=== PATIENT | female | born 1955 | race Caucasian/White ===

== ENCOUNTER 2017-01-28 09:25 | Inpatient (IN) | payer MEDICAID ==
[~2017-01-28] VITALS: Ht 170.2 cm; Wt 95.3 kg
[~2017-01-28 09:25] MED LIST: NEURONTIN; ROBAXIN; VICODIN
[2017-01-28] MEDS ORDERED: FURO40TA5 PO (09:38)
[2017-01-28] MEDS ORDERED: GABA-533 PO (09:38)
[2017-01-28] MEDS ORDERED: LORAZEPAM 1MG TABLET PO ONE (15:45)
[2017-01-28] MEDS ORDERED: SODIUM CHLORIDE 0.9% 1,000 ML IV ONE (18:45)
[2017-01-28] MEDS ORDERED: MORPHINE SULFATE 4 MG/ML CPJ (NOT FOR IM USE) IV ONE (18:45)
[2017-01-28] MEDS ORDERED: ONDANSETRON HCL 4MG/2ML VIAL IV ONE (18:45)
[2017-01-28 22:30] VITALS: BP 131/78
[2017-01-29] VITALS: BP_SYST 144; BP_DIAS 47; BP_DIAS 59
[2017-01-29] MEDS ORDERED: DEXTROSE 50% WATER 50ML SYRINGE IV PRN
[2017-01-29] MEDS ORDERED: CLONIDINE 0.1MG TABLET PO ONE
[2017-01-29] MEDS ORDERED: CLONIDINE 0.1MG TABLET PO PRN ×2 (00:15→18:15)
[2017-01-29] MEDS: MORPHINE SULFATE 4 MG/ML CPJ (NOT FOR IM USE) IV PRN ×3 (00:45→09:35)
[2017-01-29 04:00] VITALS: BP_SYST 131; BP_SYST 134; BP_DIAS 55; BP_DIAS 71
[2017-01-29 07:10] LABS: BASOPHILS % 0.6 % (0.0-2.0); EOSINOPHILS % 2.4 % (0.0-5.0); HEMATOCRIT. 32.2 % (36.0-48.0); HEMOGLOBIN. 10.9 g/dL (12.0-16.0); LYMPHOCYTES % 42.1 % (20.0-50.0); MEAN CORPUSCULAR HEMOGLOBIN 31.6 pg (28.0-32.0); MEAN CORPUSCULAR VOLUME 93.6 fL (81.0-99.0); MEAN PLATELET VOLUME 8.6 fl (7.4-10.4); MONOCYTES % 8.6 % (2.0-8.0); NEUTROPHILS % 46.3 % (40.0-76.0); PLATELET 195 x1000/uL (130-400); RED BLOOD CELL COUNT 3.44 mill/uL (4.2-5.4); RED CELL DISTRIBUTION WIDTH 14.1 % (11.6-14.6)
[2017-01-29] MEDS: INSULIN LISPRO 100 UNITS/ML SUBCUT SCH ×4 (07:50→20:54)
[2017-01-29 08:00] VITALS: BP 128/58
[2017-01-29] MEDS: BLOOD SUGAR DIAGNOSTIC STRIP TEST SCH ×4 (08:04→20:47)
[2017-01-29 08:22] LABS: CARBON DIOXIDE 31 mEq/L (21-32); CHLORIDE 106 mEq/L (98-107)
[2017-01-29] MEDS ORDERED: NICOTINE 14MG PATCH TD SCH (09:00)
[2017-01-29] MEDS: GABAPENTIN 400MG CAPSULE PO SCH (09:35)
[2017-01-29] MEDS ORDERED: INFLUENZA VIRUS VACCINE 0.5ML SYR IM ONE (10:00)
[2017-01-29] MEDS: CARISOPRODOL 350 MG TABLET PO PRN ×2 (13:10→22:22)
[2017-01-29] MEDS: HYDROCODONE/ACETAMINOPHEN 10/325MG TABLET PO PRN ×2 (13:11→18:52)
[2017-01-29 16:00] VITALS: BP 122/45
[2017-01-29] MEDS ORDERED: ONDANSETRON HCL 4MG/2ML VIAL IV PRN ×2 (18:15)
[2017-01-29] MEDS ORDERED: MAGNESIUM/ALUMINUM HYDROXIDE/SIMETHICONE 30ML UDC PO PRN (18:15)
[2017-01-29] MEDS ORDERED: ACETAMINOPHEN 650MG/20.3ML UDC GT PRN (18:15)
[2017-01-29] MEDS ORDERED: IPRATROPIUM/ALBUTEROL 0.5-3(2.5)MG/3ML NEB INH PRN (18:15)
[2017-01-29] MEDS ORDERED: ACETAMINOPHEN 650MG SUPP PR PRN (18:15)
[2017-01-29 20:00] VITALS: BP 119/45
[2017-01-29] MEDS ORDERED: POTASSIUM CHLORIDE 20MEQ TABLET SR PO NR (20:30)
[2017-01-29] MEDS: SODIUM CHLORIDE 0.9% INJ 3ML FLUSH IVF SCH (21:02)
[2017-01-29 23:39] LABS: CLARITY URINE CLEAR (CLEAR); COLOR URINE YELLOW (YELLOW); GLUCOSE URINE NEGATIVE (NEGATIVE); KETONES URINE NEGATIVE (NEGATIVE); LEUKOCYTE ESTERASE URINE NEGATIVE (NEGATIVE); NITRITE URINE NEGATIVE (NEGATIVE); OCCULT BLOOD URINE NEGATIVE (NEGATIVE); PH URINE 5.5 (4.5-8.0); PROTEIN URINE NEGATIVE (NEGATIVE); SPECIFIC GRAVITY URINE 1.017 (1.005-1.030); UROBILINOGEN URINE 0.2 E.U./dL (0.2-1.0)
[2017-01-30] VITALS: BP 116/52
[2017-01-30 00:02] LABS: *AMPHETAMINES SCREEN URINE NEGATIVE (NEGATIVE); *BARBITURATES SCREEN URINE NEGATIVE (NEGATIVE); *BENZODIAZEPINES SCREEN URINE NEGATIVE (NEGATIVE); *COCAINE SCREEN URINE NEGATIVE (NEGATIVE); CANNABINOID URINE SCREEN PRESUMTIVE POSITIVE (NEGATIVE); METHADONE URINE SCREEN NEGATIVE (NEGATIVE); OPIATES URINE SCREEN PRESUMTIVE POSITIVE (NEGATIVE); PHENCYCLIDINE URINE SCREEN NEGATIVE (NEGATIVE)
[2017-01-30 04:00] VITALS: BP 120/78
[2017-01-30] MEDS: HYDROCODONE/ACETAMINOPHEN 10/325MG TABLET PO PRN ×3 (04:05→18:29)
[2017-01-30] MEDS: CARISOPRODOL 350 MG TABLET PO PRN ×3 (06:19→22:07)
[2017-01-30] MEDS: SODIUM CHLORIDE 0.9% INJ 3ML FLUSH IVF SCH ×3 (06:19→20:47)
[2017-01-30] MEDS: BLOOD SUGAR DIAGNOSTIC STRIP TEST SCH ×4 (06:38→20:49)
[2017-01-30] MEDS: INSULIN LISPRO 100 UNITS/ML SUBCUT SCH ×4 (07:50→20:49)
[2017-01-30 08:00] VITALS: BP 113/43
[2017-01-30 08:01] LABS: BASOPHILS % 0.7 % (0.0-2.0); EOSINOPHILS % 2.3 % (0.0-5.0); HEMATOCRIT. 32.5 % (36.0-48.0); LYMPHOCYTES % 33.3 % (20.0-50.0); MEAN CORPUSCULAR HEMOGLOBIN 31.9 pg (28.0-32.0); MEAN CORPUSCULAR VOLUME 94.1 fL (81.0-99.0); MEAN PLATELET VOLUME 8.6 fl (7.4-10.4); MONOCYTES % 9.2 % (2.0-8.0); NEUTROPHILS % 54.5 % (40.0-76.0); PLATELET 193 x1000/uL (130-400); RED BLOOD CELL COUNT 3.46 mill/uL (4.2-5.4); RED CELL DISTRIBUTION WIDTH 14.4 % (11.6-14.6)
[2017-01-30 08:57] LABS: CARBON DIOXIDE 28 mEq/L (21-32); CHLORIDE 107 mEq/L (98-107); LDL CHOLESTEROL 130 mg/dL (5-100)
[2017-01-30] MEDS: GABAPENTIN 400MG CAPSULE PO SCH (08:58)
[2017-01-30 09:00] LABS: HDL CHOLESTEROL 49 mg/dL (40-59)
[2017-01-30 12:00] VITALS: BP 118/97
[2017-01-30 16:00] VITALS: BP 124/55
[2017-01-30] MEDS ORDERED: NICOTINE 14MG PATCH TD SCH (18:00)
[2017-01-30 20:00] VITALS: BP 105/42
[2017-01-30 20:47] LABS: PROTHROMBIN TIME 10.5 sec (9.4-11.6)
[2017-01-31] VITALS (36 sets, daily range): BP systolic 110–160; BP diastolic 42–78
[2017-01-31] MEDS: HYDROCODONE/ACETAMINOPHEN 10/325MG TABLET PO PRN ×2 (06:09→23:08)
[2017-01-31] MEDS: SODIUM CHLORIDE 0.9% INJ 3ML FLUSH IVF SCH ×3 (06:10→22:00)
[2017-01-31] MEDS: BLOOD SUGAR DIAGNOSTIC STRIP TEST SCH ×3 (06:13→18:00)
[2017-01-31] MEDS: INSULIN LISPRO 100 UNITS/ML SUBCUT SCH ×4 (06:55→21:00)
[2017-01-31] MEDS ORDERED: BACITRACIN 50,000 UNITS/VIAL ONE (07:00)
[2017-01-31] MEDS ORDERED: NORMAL SALINE 0.9% 10 ML SYR ONE (07:00)
[2017-01-31] MEDS ORDERED: THROMBIN (BOVINE) 5000 UNITS/VIAL TOP ONE (07:00)
[2017-01-31] MEDS ORDERED: GELATIN SPONGE,ABSORBABLE SZ 100 ONE (07:00)
[2017-01-31] MEDS ORDERED: LIDOCAINE HCL 1%/EPI 1:200,000 30 ML VIAL ONE (07:02)
[2017-01-31] MEDS ORDERED: ONDANSETRON HCL 4MG/2ML VIAL IV PRN (07:15)
[2017-01-31] MEDS ORDERED: ATROPINE SULFATE 0.4MG/ML VIAL IV PRN (07:15)
[2017-01-31] MEDS ORDERED: FENTANYL CITRATE/PF 50MCG/ML 2ML VIAL IV PRN (07:15)
[2017-01-31] MEDS ORDERED: MIDAZOLAM HCL 5 MG/5 ML VIAL ONE (07:18)
[2017-01-31] MEDS ORDERED: NICARDIPINE 50 MG in SODIUM CHLORIDE 0.9% 230 ML IV PRN (08:00)
[2017-01-31] MEDS ORDERED: PROPOFOL 10MG/ML 100ML 100 ML IV ONE (08:39)
[2017-01-31] MEDS ORDERED: MANNITOL 20% 0 ML IV ONE (08:59)
[2017-01-31] MEDS ORDERED: NICARDIPINE 100 MG in SODIUM CHLORIDE 0.9% 60 ML IV ONE (09:00)
[2017-01-31] MEDS ORDERED: FUROSEMIDE 40MG TABLET PO SCH (09:00)
[2017-01-31] MEDS ORDERED: LIDOCAINE HCL 1% 20ML VIAL (Pyxis) INJ ONE (09:05)
[2017-01-31] MEDS ORDERED: PROPOFOL 200MG/20ML VIAL IV ONE (09:05)
[2017-01-31] MEDS ORDERED: CEFAZOLIN SODIUM 1000MG/VIAL ONE (09:05)
[2017-01-31] MEDS ORDERED: ROCURONIUM BROMIDE 10MG/ML VIAL 5ML IV ONE (09:05)
[2017-01-31] MEDS ORDERED: LABETALOL HCL 5MG/ML VIAL 20ML IV ONE (09:06)
[2017-01-31] MEDS ORDERED: KETOROLAC 30MG/ML VIAL ONE (09:06)
[2017-01-31] MEDS ORDERED: ESMOLOL HCL 10MG/ML 10ML VIAL IV ONE (09:06)
[2017-01-31] MEDS ORDERED: FENTANYL CITRATE/PF 50MCG/ML 2ML VIAL ONE ×2 (10:10→11:28)
[2017-01-31] MEDS: HYDROMORPHONE HCL/PF 2MG/ML CPJ IV PRN ×2 (11:56→12:11)
[2017-01-31] MEDS ORDERED: NICARDIPINE 100 MG in SODIUM CHLORIDE 0.9% 60 ML IV PRN (12:00)
[2017-01-31] MEDS ORDERED: ONDANSETRON INJ IV PRN (12:00)
[2017-01-31] MEDS ORDERED: HYDROMORPHONE PCA 10MG/50ML IV PRN (12:00)
[2017-01-31] MEDS ORDERED: NALOXONE INJ IV PRN (12:00)
[2017-01-31] MEDS: DEXT 5%/LACTATED RINGERS 1,000 ML IV SCH ×2 (12:30→18:47)
[2017-01-31] MEDS ORDERED: CEFAZOLIN SODIUM 1000MG/VIAL IV SCH (14:00)
[2017-01-31] MEDS: CEFAZOLIN 1000MG PREMIX 50 ML IV SCH (16:00)
[2017-01-31] MEDS: POTASSIUM CHLORIDE 10MEQ TABLET SR PO SCH (18:00)
[2017-01-31] MEDS ORDERED: CLONIDINE 0.1MG TABLET PO PRN (18:15)
[2017-01-31] MEDS: NICOTINE 14MG PATCH TD SCH (20:00)
[2017-01-31] MEDS: MORPHINE SULFATE 4 MG/ML CPJ (NOT FOR IM USE) IV PRN (22:55)
[2017-02-01] VITALS (16 sets, daily range): BP systolic 94–185; BP diastolic 44–124
[2017-02-01] MEDS: CEFAZOLIN 1000MG PREMIX 50 ML IV SCH ×2 (00:32→08:37)
[2017-02-01] MEDS: CARISOPRODOL 350 MG TABLET PO PRN ×2 (00:34→11:44)
[2017-02-01] MEDS: DEXT 5%/LACTATED RINGERS 1,000 ML IV SCH (01:00)
[2017-02-01] MEDS ORDERED: MORPHINE SULFATE 2 MG/ML CPJ (NOT FOR IM USE) IV PRN (02:30)
[2017-02-01] MEDS: MORPHINE SULFATE 4 MG/ML CPJ (NOT FOR IM USE) IV PRN ×3 (02:36→07:21)
[2017-02-01] MEDS: SODIUM CHLORIDE 0.9% INJ 3ML FLUSH IVF SCH ×3 (06:00→21:27)
[2017-02-01 06:46] LABS: BASOPHILS % 0.2 % (0.0-2.0); EOSINOPHILS % 0.2 % (0.0-5.0); LYMPHOCYTES % 16.5 % (20.0-50.0); MEAN CORPUSCULAR HEMOGLOBIN 32.2 pg (28.0-32.0); MEAN PLATELET VOLUME 8.8 fl (7.4-10.4); NEUTROPHILS % 71.1 % (40.0-76.0); PLATELET 172 x1000/uL (130-400); RED BLOOD CELL COUNT 2.78 mill/uL (4.2-5.4); RED CELL DISTRIBUTION WIDTH 14.4 % (11.6-14.6)
[2017-02-01] MEDS: INSULIN LISPRO 100 UNITS/ML SUBCUT SCH ×4 (07:00→21:00)
[2017-02-01] MEDS: BLOOD SUGAR DIAGNOSTIC STRIP TEST SCH ×4 (07:02→21:27)
[2017-02-01 07:21] LABS: HEMATOCRIT. 26.9 % (36.0-48.0)
[2017-02-01] MEDS: FUROSEMIDE 40MG TABLET PO SCH (09:00)
[2017-02-01] MEDS: GABAPENTIN 400MG CAPSULE PO SCH (09:00)
[2017-02-01] MEDS: HYDROCODONE/ACETAMINOPHEN 10/325MG TABLET PO PRN ×2 (09:35→20:36)
[2017-02-01] MEDS ORDERED: MORPHINE SULFATE 4 MG/ML CPJ (NOT FOR IM USE) IV PRN (09:45)
[2017-02-01] MEDS: HYDROMORPHONE HCL/PF 2MG/ML CPJ IV PRN ×3 (12:53→23:58)
[2017-02-01] MEDS: FENOFIBRATE NANOCRYSTALLIZED 48MG TABLET PO SCH (13:07)
[2017-02-01] MEDS ORDERED: LORAZEPAM 0.5MG TABLET PO ONE (14:30)
[2017-02-01] MEDS ORDERED: LORAZEPAM 2MG/ML CPJ IV SCH ×3 (14:30→14:45)
[2017-02-01] MEDS: NICOTINE 14MG PATCH TD SCH (20:07)
[2017-02-01] MEDS: LORAZEPAM 2MG/ML CPJ IV PRN (20:35)
[2017-02-01] MEDS: ATORVASTATIN CALCIUM 40MG TABLET PO SCH (20:36)
[2017-02-01] MEDS: ACETAMINOPHEN 325MG TABLET PO PRN (21:17)
[2017-02-01] MEDS: DIPHENHYDRAMINE INJ IV PRN (23:58)
[2017-02-02] VITALS (28 sets, daily range): BP systolic 81–148; BP diastolic 35–107
[2017-02-02] MEDS: LORAZEPAM 2MG/ML CPJ IV PRN ×3 (02:27→08:06)
[2017-02-02] MEDS: HYDROCODONE/ACETAMINOPHEN 10/325MG TABLET PO PRN ×4 (02:27→22:16)
[2017-02-02] MEDS: CARISOPRODOL 350 MG TABLET PO PRN ×2 (02:58→18:51)
[2017-02-02] MEDS: DIPHENHYDRAMINE INJ IV PRN (03:54)
[2017-02-02] MEDS: HYDROMORPHONE HCL/PF 2MG/ML CPJ IV PRN ×5 (03:56→23:06)
[2017-02-02] MEDS: BLOOD SUGAR DIAGNOSTIC STRIP TEST SCH ×4 (07:00→21:41)
[2017-02-02] MEDS: INSULIN LISPRO 100 UNITS/ML SUBCUT SCH ×4 (07:00→21:00)
[2017-02-02] MEDS: SODIUM CHLORIDE 0.9% INJ 3ML FLUSH IVF SCH ×3 (08:00→21:41)
[2017-02-02 09:13] LABS: HEMATOCRIT 26.2 % (36.0-48.0); HEMOGLOBIN 9.1 g/dL (12.0-16.0); MEAN CORPUSCULAR HEMOGLOBIN 31.7 pg (28.0-32.0); MEAN CORPUSCULAR VOLUME 91.7 fL (81.0-99.0); PLATELET 177 x1000/uL (130-400); RED BLOOD CELL COUNT 2.86 mill/uL (4.2-5.4)
[2017-02-02] MEDS: GABAPENTIN 400MG CAPSULE PO SCH (09:38)
[2017-02-02] MEDS: FUROSEMIDE 40MG TABLET PO SCH (09:39)
[2017-02-02] MEDS: FENOFIBRATE NANOCRYSTALLIZED 48MG TABLET PO SCH (09:39)
[2017-02-02] MEDS: POTASSIUM CHLORIDE 10MEQ TABLET SR PO SCH (09:39)
[2017-02-02] MEDS: NICOTINE 14MG PATCH TD SCH (17:12)
[2017-02-02] MEDS: ATORVASTATIN CALCIUM 40MG TABLET PO SCH (21:42)
[2017-02-02] MEDS: ACETAMINOPHEN 325MG TABLET PO PRN (23:10)
[2017-02-03] VITALS (23 sets, daily range): BP systolic 90–141; BP diastolic 42–99
[2017-02-03] MEDS: LORAZEPAM 2MG/ML CPJ IV PRN (01:22)
[2017-02-03] MEDS: HYDROMORPHONE HCL/PF 2MG/ML CPJ IV PRN ×7 (03:43→21:54)
[2017-02-03] MEDS: SODIUM CHLORIDE 0.9% INJ 3ML FLUSH IVF SCH ×3 (06:47→20:25)
[2017-02-03] MEDS: INSULIN LISPRO 100 UNITS/ML SUBCUT SCH ×4 (06:47→20:22)
[2017-02-03] MEDS: BLOOD SUGAR DIAGNOSTIC STRIP TEST SCH ×4 (06:47→20:23)
[2017-02-03] MEDS ORDERED: DEXTROSE 5% WATER 1,000 ML IV SCH (08:00)
[2017-02-03] MEDS: OXYCODONE HCL/ACETAMINOPHEN 5/325MG TABLET PO PRN ×2 (08:53→20:22)
[2017-02-03] MEDS: FUROSEMIDE 40MG TABLET PO SCH (09:06)
[2017-02-03] MEDS: FENOFIBRATE NANOCRYSTALLIZED 48MG TABLET PO SCH (09:06)
[2017-02-03] MEDS: GABAPENTIN 400MG CAPSULE PO SCH (09:06)
[2017-02-03] MEDS: POTASSIUM CHLORIDE 10MEQ TABLET SR PO SCH (09:06)
[2017-02-03 10:17] LABS: HEMATOCRIT 27.8 % (36.0-48.0); HEMOGLOBIN 9.5 g/dL (12.0-16.0); MEAN CORPUSCULAR HEMOGLOBIN 31.4 pg (28.0-32.0); MEAN CORPUSCULAR VOLUME 91.7 fL (81.0-99.0); PLATELET 199 x1000/uL (130-400); RED BLOOD CELL COUNT 3.03 mill/uL (4.2-5.4); RED CELL DISTRIBUTION WIDTH 13.6 % (11.6-14.6)
[2017-02-03 10:33] LABS: CARBON DIOXIDE 37 mEq/L (21-32); CHLORIDE 92 mEq/L (98-107)
[2017-02-03] MEDS: DEXT 5%/LACTATED RINGERS 1,000 ML IV SCH ×2 (11:11→21:00)
[2017-02-03] MEDS ORDERED: POTASSIUM CHLORIDE INJ 40 MEQ in DEXT 5% WATER 250 ML IV NR (12:00)
[2017-02-03] MEDS: NICOTINE 14MG PATCH TD SCH (18:53)
[2017-02-03] MEDS: ACETAMINOPHEN 325MG TABLET PO PRN (20:24)
[2017-02-03] MEDS: ATORVASTATIN CALCIUM 40MG TABLET PO SCH (20:24)
[2017-02-03] MEDS: CARISOPRODOL 350 MG TABLET PO PRN (23:07)
[2017-02-04] VITALS (8 sets, daily range): BP systolic 107–134; BP diastolic 47–74
[2017-02-04] MEDS ORDERED: POTASSIUM CHLORIDE 20MEQ TABLET SR PO SCH (00:30)
[2017-02-04] MEDS: HYDROMORPHONE HCL/PF 2MG/ML CPJ IV PRN ×5 (01:04→20:18)
[2017-02-04] MEDS: DEXT 5%/LACTATED RINGERS 1,000 ML IV SCH ×2 (01:15→07:00)
[2017-02-04] MEDS: OXYCODONE HCL/ACETAMINOPHEN 5/325MG TABLET PO PRN ×2 (05:05→12:11)
[2017-02-04 06:10] LABS: CARBON DIOXIDE 38 mEq/L (21-32); CHLORIDE 92 mEq/L (98-107)
[2017-02-04] MEDS: BLOOD SUGAR DIAGNOSTIC STRIP TEST SCH ×4 (06:30→20:33)
[2017-02-04] MEDS: INSULIN LISPRO 100 UNITS/ML SUBCUT SCH ×4 (07:00→20:33)
[2017-02-04] MEDS: SODIUM CHLORIDE 0.9% INJ 3ML FLUSH IVF SCH ×3 (07:37→22:48)
[2017-02-04] MEDS: FUROSEMIDE 40MG TABLET PO SCH (08:27)
[2017-02-04] MEDS: POTASSIUM CHLORIDE 10MEQ TABLET SR PO SCH (08:27)
[2017-02-04] MEDS: GABAPENTIN 400MG CAPSULE PO SCH (08:27)
[2017-02-04] MEDS: FENOFIBRATE NANOCRYSTALLIZED 48MG TABLET PO SCH (08:27)
[2017-02-04] MEDS: CARISOPRODOL 350 MG TABLET PO PRN (09:16)
[2017-02-04 10:01] LABS: T4 FREE 1.57 ng/dL (0.76-1.46)
[2017-02-04] MEDS ORDERED: POTASSIUM CHLORIDE 20MEQ TABLET SR PO NR (10:45)
[2017-02-04] MEDS ORDERED: HYDROMORPHONE HCL/PF 2MG/ML CPJ IV PRN (12:15)
[2017-02-04] MEDS ORDERED: HYDROMORPHONE HCL/PF 2MG/ML CPJ IV NR (16:00)
[2017-02-04 16:13] LABS: CREATINE KINASE MB FRACTION 1.8 ng/mL (0.5-3.6); TROPONIN I < 0.02 ng/mL (0.00-0.04)
[2017-02-04 16:17] LABS: CREATINE KINASE 1136 IU/L (26-192)
[2017-02-04] MEDS: ACETAMINOPHEN 325MG TABLET PO PRN (18:10)
[2017-02-04] MEDS: CYCLOBENZAPRINE 10MG TABLET PO PRN (18:10)
[2017-02-04] MEDS: ATORVASTATIN CALCIUM 40MG TABLET PO SCH (20:18)
[2017-02-04] MEDS: NICOTINE 14MG PATCH TD SCH (20:18)
[2017-02-04 23:35] LABS: TROPONIN I < 0.02 ng/mL (0.00-0.04)
[2017-02-05] VITALS: BP 128/58
[2017-02-05] MEDS: HYDROMORPHONE HCL/PF 2MG/ML CPJ IV PRN ×4 (00:43→17:11)
[2017-02-05 01:00] LABS: CREATINE KINASE 1046 IU/L (26-192)
[2017-02-05] MEDS: DEXT 5%/LACTATED RINGERS 1,000 ML IV SCH ×2 (01:18→14:30)
[2017-02-05] MEDS: CYCLOBENZAPRINE 10MG TABLET PO PRN ×3 (02:45→22:57)
[2017-02-05] MEDS: LORAZEPAM 2MG/ML CPJ IV PRN ×2 (02:49→14:25)
[2017-02-05 04:00] VITALS: BP 125/37
[2017-02-05] MEDS: SODIUM CHLORIDE 0.9% INJ 3ML FLUSH IVF SCH ×3 (05:25→20:18)
[2017-02-05] MEDS: BLOOD SUGAR DIAGNOSTIC STRIP TEST SCH ×4 (06:05→20:16)
[2017-02-05] MEDS: INSULIN LISPRO 100 UNITS/ML SUBCUT SCH ×4 (06:33→20:16)
[2017-02-05 08:00] VITALS: BP 125/39
[2017-02-05] MEDS: FUROSEMIDE 40MG TABLET PO SCH (08:03)
[2017-02-05] MEDS: FENOFIBRATE NANOCRYSTALLIZED 48MG TABLET PO SCH (08:03)
[2017-02-05] MEDS: POTASSIUM CHLORIDE 10MEQ TABLET SR PO SCH (08:03)
[2017-02-05] MEDS: GABAPENTIN 400MG CAPSULE PO SCH (08:03)
[2017-02-05] MEDS: OXYCODONE HCL/ACETAMINOPHEN 5/325MG TABLET PO PRN ×2 (08:04→20:13)
[2017-02-05] MEDS: ACETAMINOPHEN 325MG TABLET PO PRN (08:55)
[2017-02-05 09:17] LABS: CREATINE KINASE 870 IU/L (26-192); CREATINE KINASE MB FRACTION 1.7 ng/mL (0.5-3.6); TROPONIN I < 0.02 ng/mL (0.00-0.04)
[2017-02-05 12:00] VITALS: BP 130/75
[2017-02-05 15:56] VITALS: BP 133/68
[2017-02-05] MEDS: NICOTINE 14MG PATCH TD SCH (17:11)
[2017-02-05 20:00] VITALS: BP 120/51
[2017-02-05] MEDS: ATORVASTATIN CALCIUM 40MG TABLET PO SCH (20:13)
[2017-02-06] VITALS: BP 127/50
[2017-02-06] MEDS: HYDROMORPHONE HCL/PF 2MG/ML CPJ IV PRN ×3 (01:15→18:07)
[2017-02-06 04:00] VITALS: BP 126/51
[2017-02-06] MEDS: OXYCODONE HCL/ACETAMINOPHEN 5/325MG TABLET PO PRN (04:18)
[2017-02-06] MEDS: INSULIN LISPRO 100 UNITS/ML SUBCUT SCH ×4 (06:34→21:00)
[2017-02-06] MEDS: SODIUM CHLORIDE 0.9% INJ 3ML FLUSH IVF SCH ×3 (06:34→20:55)
[2017-02-06] MEDS: BLOOD SUGAR DIAGNOSTIC STRIP TEST SCH ×4 (06:34→21:00)
[2017-02-06 08:00] VITALS: BP 148/62
[2017-02-06] MEDS: POTASSIUM CHLORIDE 10MEQ TABLET SR PO SCH (08:24)
[2017-02-06] MEDS: FUROSEMIDE 40MG TABLET PO SCH (08:25)
[2017-02-06] MEDS: FENOFIBRATE NANOCRYSTALLIZED 48MG TABLET PO SCH (08:25)
[2017-02-06] MEDS: GABAPENTIN 400MG CAPSULE PO SCH (08:25)
[2017-02-06] MEDS: NICOTINE 14MG PATCH TD SCH (18:00)
[2017-02-06 20:00] VITALS: BP 126/63
[2017-02-06] MEDS: ATORVASTATIN CALCIUM 40MG TABLET PO SCH (20:54)
[2017-02-06] MEDS ORDERED: TAMSULOSIN HCL 0.4MG SR CAPSULE PO SCH (21:00)
[2017-02-06] MEDS ORDERED: OXYC-523 PO (22:33)
[2017-02-06] MEDS ORDERED: GABA-533 PO (22:33)
[2017-02-06] MEDS ORDERED: LIP40 PO (22:33)
[2017-02-06] MEDS ORDERED: FURO40TA5 PO (22:33)
[2017-02-06] MEDS ORDERED: TAMS-11 PO (22:33)
[2017-02-07] VITALS (7 sets, daily range): BP systolic 106–138; BP diastolic 47–68
[2017-02-07] MEDS: HYDROMORPHONE HCL/PF 2MG/ML CPJ IV PRN ×2 (04:06→12:40)
[2017-02-07] MEDS: SODIUM CHLORIDE 0.9% INJ 3ML FLUSH IVF SCH ×2 (06:31→15:26)
[2017-02-07] MEDS: BLOOD SUGAR DIAGNOSTIC STRIP TEST SCH ×3 (06:33→17:14)
[2017-02-07] MEDS: INSULIN LISPRO 100 UNITS/ML SUBCUT SCH ×3 (06:44→17:15)
[2017-02-07] MEDS: FUROSEMIDE 40MG TABLET PO SCH (10:08)
[2017-02-07] MEDS: FENOFIBRATE NANOCRYSTALLIZED 48MG TABLET PO SCH (10:08)
[2017-02-07] MEDS: GABAPENTIN 400MG CAPSULE PO SCH (10:09)
[2017-02-07] MEDS: POTASSIUM CHLORIDE 10MEQ TABLET SR PO SCH (10:09)
[2017-02-07] MEDS: NICOTINE 14MG PATCH TD SCH (19:17)
== END 2017-02-07 20:48 | DRG 304 ==
LOC: ER 10:07 → 6EST 18:28 → ENRESERV 19:17 → MICUNO 01-31 11:37 → 8WST 02-04 16:29
PROVIDERS: ADMIT Family Medicine; ATTEND Family Medicine
PROC: 0SG3071 Fusion of Lumbosacral Joint with Autologous Tissue Substitute, Posterior Approach, Posterior Column, Open Approach (ICD-10-PCS; 2017-01-31)
PROC: 0SG0071 Fusion of Lumbar Vertebral Joint with Autologous Tissue Substitute, Posterior Approach, Posterior Column, Open Approach (ICD-10-PCS; principal; 2017-01-31 07:30)
DX: M43.16 Spondylolisthesis, lumbar region (principal); G95.89 Other specified diseases of spinal cord; M48.02 Spinal stenosis, cervical region; I11.0 Hypertensive heart disease with heart failure; I50.9 Heart failure, unspecified; M47.16 Other spondylosis with myelopathy, lumbar region; D64.9 Anemia, unspecified; E11.9 Type 2 diabetes mellitus without complications; E78.1 Pure hyperglyceridemia; E78.5 Hyperlipidemia, unspecified; E66.9 Obesity, unspecified; M48.061 Spinal stenosis, lumbar region without neurogenic claudication; R26.81 Unsteadiness on feet; R01.1 Cardiac murmur, unspecified; R33.9 Retention of urine, unspecified; I50.30 Unspecified diastolic (congestive) heart failure; Z60.2 Problems related to living alone; M47.26 Other spondylosis with radiculopathy, lumbar region; M71.38 Other bursal cyst, other site; F17.200 Nicotine dependence, unspecified, uncomplicated; M48.07 Spinal stenosis, lumbosacral region; G89.29 Other chronic pain; M54.2 Cervicalgia; Z90.710 Acquired absence of both cervix and uterus; Z98.891 History of uterine scar from previous surgery; Z91.81 History of falling; Z79.899 Other long term (current) drug therapy; Z91.14 Patient's other noncompliance with medication regimen; Z82.49 Family history of ischemic heart disease and other diseases of the circulatory system; Z68.32 Body mass index [BMI] 32.0-32.9, adult
CPT/HCPCS: 36415; 71010; 72100; 72141; 72148; 80048; 80053; 80061; 80305; 81003; 82550; 82553; 82962; 83036; 83735; 83880; 84132; 84439; 84443; 84484; 85025; 85027; 85379; 85610; 86803; 86850; 86900; 88304; 88311; 90686; 93005; 93306; 93970; 95863; 95925; 95926; 95928; 95929; 96361; 96374; 96375; 96376; 97162; 97166; 97530; 97535; 99285; A4216; C1713; J0690; J1170; J1200; J1815; J1885; J2060; J2250; J2270; J2405; J2704; J3010; J3480; J3490; J7030; J7050; J7060; J7070; J7121; A4315

== ENCOUNTER → 2019-02-13 | Day surgery (SDC) | payer MEDICAID ==
[~2019-02-13] VITALS: Ht 170.2 cm; Wt 93.0 kg
[~2019-02-13] MED LIST changes: +ACETYLCHOLINE CHLORIDE INTRAOCULAR SOLUTION 1:100 ELECTROLYTE DILUENT IO ONE; +BALANCED SALT IRRIG SOLN 15ML ONE; +BALANCED SALT IRRIG SOLN COMB1 500ML OP SCH; +BUPIVACAINE HCL/PF 0.75% (7.5MG/ML) 10ML ONE; +CEFAZOLIN SODIUM 1000MG/VIAL ONE; +CIPROFLOXACIN; +CIPROFLOXACIN 0.3% OPHTH SOLN 2.5ML ONE; +CYCLOPENTOLATE HCL 1% OPHTH DROPS 2ML LEFTEYE NR; +DEXAMETHASONE 4MG/ML 1ML VIAL ONE; +EPHEDRINE SULFATE 50MG/ML VIAL ONE; +FENTANYL CITRATE/PF 50MCG/ML 2ML VIAL ONE; +FURO40TA5 PO; +GABA-533 PO; +GLYCOPYRROLATE 0.2 MG/ML 2ML VIAL ONE; +HYALURONATE SODIUM 14 MG/ML 0.85ML SYRINGE IO ONE; +HYDROMORPHONE HCL/PF 2MG/ML CPJ IV PRN; +IBUP-2029 MT; +LABETALOL 5MG/ML SYR 20 MG/4 ML SYRINGE IV PRN; +LABETALOL HCL 5MG/ML VIAL 20ML IV ONE; +LACTATED RINGERS 1,000 ML IV SCH; +LIDOCAINE HCL/PF 1% 10 MG/ML 5ML VIAL ONE; +LIDOCAINE HCL/PF 2% 20 MG/ML 10ML VIAL ONE; +MEPERIDINE HCL/PF 25MG/ML CPJ IV PRN; +METH50TA5 MT; +METOCLOPRAMIDE HCL 10MG/2ML VIAL ONE; +MIDAZOLAM HCL 2 MG/2 ML VIAL ONE; +NEO/POLYMYX B SULF/DEXAMETH OPHTH OINT 3.5GM ONE; +NEOSTIGMINE METHYLSULFATE 1MG/ML 10 ML VIAL ONE; -NEURONTIN; +OFLO5DRO3 LEFTEYE; +ONDANSETRON HCL 4MG/2ML INJ IV PRN; +ONDANSETRON HCL 4MG/2ML INJ ONE; +PHENYLEPHRINE HCL 10 MG/ML 1ML (IV VIAL) IV ONE; +PHENYLEPHRINE HCL 10% OPHTH DROPS 5ML LEFTEYE NR; +PRED12O LEFTEYE; +PREDNISOLONE ACETATE 1% OPHTH DROPS 5ML ONE; +PREDNISONE; +PROPOFOL 200MG/20ML VIAL IV ONE; -ROBAXIN; +SODIUM CHLORIDE 0.9% 10ML VIAL ONE; +SUCCINYLCHOLINE CHLORIDE 200MG/10ML IV ONE; +TETRACAINE 0.5% OPHTH DROPS 4ML ONE; +TROPICAMIDE 1% OPHTH DROPS 15ML LEFTEYE NR; -VICODIN; +[UNRECOGNIZED DRUG - OTHER]
== END | disposition home or self-care (01) ==
LOC: OR 07:31
PROVIDERS: ATTEND Ophthalmology
DX: H25.89 Other age-related cataract (principal); E66.9 Obesity, unspecified; E78.00 Pure hypercholesterolemia, unspecified; I48.91 Unspecified atrial fibrillation; F17.210 Nicotine dependence, cigarettes, uncomplicated; Z98.890 Other specified postprocedural states; Z98.891 History of uterine scar from previous surgery; Z79.899 Other long term (current) drug therapy; Z72.89 Other problems related to lifestyle; Z83.3 Family history of diabetes mellitus; Z82.49 Family history of ischemic heart disease and other diseases of the circulatory system
CPT/HCPCS: 66984; 67005; J1100; J2250; J2405; J2704; J3010; J3490; V2632

== ENCOUNTER 2019-02-14 12:25 | Day surgery (SDC) | payer MEDICAID ==
[~2019-02-14] VITALS: Ht 170.2 cm; Wt 95.0 kg
[~2019-02-14 12:25] MED LIST changes: -ACETYLCHOLINE CHLORIDE INTRAOCULAR SOLUTION 1:100 ELECTROLYTE DILUENT IO ONE; -BALANCED SALT IRRIG SOLN 15ML ONE; -BALANCED SALT IRRIG SOLN COMB1 500ML OP SCH; -BUPIVACAINE HCL/PF 0.75% (7.5MG/ML) 10ML ONE; -CEFAZOLIN SODIUM 1000MG/VIAL ONE; -CIPROFLOXACIN; -CIPROFLOXACIN 0.3% OPHTH SOLN 2.5ML ONE; -CYCLOPENTOLATE HCL 1% OPHTH DROPS 2ML LEFTEYE NR; -DEXAMETHASONE 4MG/ML 1ML VIAL ONE; -EPHEDRINE SULFATE 50MG/ML VIAL ONE; -FENTANYL CITRATE/PF 50MCG/ML 2ML VIAL ONE; -GLYCOPYRROLATE 0.2 MG/ML 2ML VIAL ONE; -HYALURONATE SODIUM 14 MG/ML 0.85ML SYRINGE IO ONE; -HYDROMORPHONE HCL/PF 2MG/ML CPJ IV PRN; -IBUP-2029 MT; -LABETALOL 5MG/ML SYR 20 MG/4 ML SYRINGE IV PRN; -LABETALOL HCL 5MG/ML VIAL 20ML IV ONE; -LACTATED RINGERS 1,000 ML IV SCH; -LIDOCAINE HCL/PF 1% 10 MG/ML 5ML VIAL ONE; -LIDOCAINE HCL/PF 2% 20 MG/ML 10ML VIAL ONE; -MEPERIDINE HCL/PF 25MG/ML CPJ IV PRN; -METH50TA5 MT; -METOCLOPRAMIDE HCL 10MG/2ML VIAL ONE; -MIDAZOLAM HCL 2 MG/2 ML VIAL ONE; -NEO/POLYMYX B SULF/DEXAMETH OPHTH OINT 3.5GM ONE; -NEOSTIGMINE METHYLSULFATE 1MG/ML 10 ML VIAL ONE; -OFLO5DRO3 LEFTEYE; -ONDANSETRON HCL 4MG/2ML INJ IV PRN; -ONDANSETRON HCL 4MG/2ML INJ ONE; -PHENYLEPHRINE HCL 10 MG/ML 1ML (IV VIAL) IV ONE; -PHENYLEPHRINE HCL 10% OPHTH DROPS 5ML LEFTEYE NR; -PRED12O LEFTEYE; -PREDNISOLONE ACETATE 1% OPHTH DROPS 5ML ONE; -PREDNISONE; -PROPOFOL 200MG/20ML VIAL IV ONE; -SODIUM CHLORIDE 0.9% 10ML VIAL ONE; -SUCCINYLCHOLINE CHLORIDE 200MG/10ML IV ONE; -TETRACAINE 0.5% OPHTH DROPS 4ML ONE; -TROPICAMIDE 1% OPHTH DROPS 15ML LEFTEYE NR; -[UNRECOGNIZED DRUG - OTHER]
[2019-02-14] MEDS ORDERED: MORPHINE SULFATE 4 MG/ML CPJ (NOT FOR IM USE) IV STA (12:43)
[2019-02-14] MEDS ORDERED: ACETAZOLAMIDE SODIUM 500MG/VIAL IV ONE (13:00)
[2019-02-14] MEDS ORDERED: TETRACAINE 0.5% OPHTH DROPS 4ML ONE (13:00)
[2019-02-14] MEDS ORDERED: BALANCED SALT IRRIG SOLN 15ML ONE (13:00)
[2019-02-14] MEDS ORDERED: PREDNISOLONE ACETATE 1% OPHTH DROPS 5ML ONE (13:00)
[2019-02-14] MEDS ORDERED: ACETYLCHOLINE CHLORIDE INTRAOCULAR SOLUTION 1:100 ELECTROLYTE DILUENT IO ONE (13:00)
[2019-02-14] MEDS ORDERED: LIDOCAINE HCL/PF 2% 20 MG/ML 10ML VIAL ONE (13:00)
[2019-02-14] MEDS ORDERED: LIDOCAINE HCL 2%/EPINEPHRINE 1:100,000 20 ML VIAL INFIL ONE (13:00)
[2019-02-14] MEDS ORDERED: BUPIVACAINE HCL/PF 0.75% (7.5MG/ML) 10ML ONE (13:00)
[2019-02-14] MEDS ORDERED: BALANCED SALT IRRIG SOLN COMB1 500ML OP SCH (13:00)
[2019-02-14] MEDS ORDERED: CIPROFLOXACIN 0.3% OPHTH SOLN 2.5ML ONE (13:00)
[2019-02-14] MEDS ORDERED: HYALURONATE SODIUM 14 MG/ML 0.85ML SYRINGE IO ONE (14:11)
[2019-02-14] MEDS ORDERED: SUCCINYLCHOLINE CHLORIDE 200MG/10ML IV ONE (14:29)
[2019-02-14] MEDS ORDERED: PROPOFOL 200MG/20ML VIAL IV ONE (14:32)
[2019-02-14] MEDS ORDERED: ROCURONIUM BROMIDE 10MG/ML VIAL 5ML IV ONE (14:33)
[2019-02-14] MEDS ORDERED: SODIUM CHLORIDE 0.9% 1,000 ML IV ONE (15:33)
[2019-02-14] MEDS ORDERED: HYDROMORPHONE HCL/PF 2MG/ML CPJ IV PRN (15:45)
[2019-02-14] MEDS ORDERED: MORPHINE SULFATE 2 MG/ML CPJ (NOT FOR IM USE) IV PRN (15:45)
[2019-02-14] MEDS ORDERED: MEPERIDINE HCL/PF 25MG/ML CPJ IV PRN (15:45)
[2019-02-14] MEDS ORDERED: ONDANSETRON HCL 4MG/2ML INJ IV PRN (15:45)
[2019-02-14 16:18] VITALS: BP 138/66
[2019-02-17] MEDS ORDERED: PREDNISONE (05:17)
[2019-02-17] MEDS ORDERED: IBUP-2029 MT (05:17)
[2019-02-17] MEDS ORDERED: PRED12O LEFTEYE (05:17)
[2019-02-17] MEDS ORDERED: METH50TA5 MT (05:17)
[2019-02-17] MEDS ORDERED: OFLO5DRO3 LEFTEYE (05:17)
[2019-02-17] MEDS ORDERED: CIPROFLOXACIN (05:17)
[2019-02-17] MEDS ORDERED: [UNRECOGNIZED DRUG - OTHER] (05:17)
== END 2019-02-14 19:00 | disposition home or self-care (01) ==
LOC: ER 12:25 → UNDOADMIN 17:09 → ORIP 17:09 → OR 17:10
PROVIDERS: ATTEND Ophthalmology
DX: H27.132 Posterior dislocation of lens, left eye (principal); H57.12 Ocular pain, left eye; F17.210 Nicotine dependence, cigarettes, uncomplicated; Z79.899 Other long term (current) drug therapy; Z72.89 Other problems related to lifestyle; Z83.3 Family history of diabetes mellitus; Z82.49 Family history of ischemic heart disease and other diseases of the circulatory system; Z90.710 Acquired absence of both cervix and uterus; Z98.890 Other specified postprocedural states
CPT/HCPCS: 66986; 67005; 96374; 96376; 99285; J0330; J0690; J1100; J1120; J2250; J2270; J2370; J2405; J2704; J2710; J2765; J3010; J3490; V2630

== ENCOUNTER 2022-08-30 09:06 | Emergency (ER) | payer MEDICAID, OTHER ==
[~2022-08-30] VITALS: Ht 170.2 cm; Wt 87.0 kg
[~2022-08-30 09:06] MED LIST changes: +CIPROFLOXACIN; +IBUP-2029 MT; +METH50TA5 MT; +OFLO5DRO3 LEFTEYE; +PRED12O LEFTEYE; +PREDNISONE; +[UNRECOGNIZED DRUG - OTHER]
[2022-08-30 09:10] VITALS: BP 129/83
[2022-08-30 10:46] LABS: BASOPHILS % 0.7 % (0.0-2.0); EOSINOPHILS % 1.6 % (0.0-5.0); HEMATOCRIT. 41.8 % (36.0-48.0); HEMOGLOBIN. 14.1 g/dL (12.0-16.0); LYMPHOCYTES % 32.9 % (20.0-50.0); MEAN CORPUSCULAR HEMOGLOBIN 32.6 pg (28.0-32.0); MEAN CORPUSCULAR VOLUME 96.6 fL (81.0-99.0); MEAN PLATELET VOLUME 8.4 fl (7.4-10.4); MONOCYTES % 8.8 % (2.0-8.0); PLATELET 160 x1000/uL (130-400); RED BLOOD CELL COUNT 4.33 mill/uL (4.2-5.4); RED CELL DISTRIBUTION WIDTH 15.6 % (11.6-14.6)
[2022-08-30 10:57] LABS: CHLORIDE 111 mEq/L (98-107)
[2022-08-30 11:05] LABS: CREATINE KINASE 156 IU/L (26-192)
[2022-08-30] MEDS ORDERED: SODIUM CHLORIDE 0.9% 1,000 ML IV ONE (12:45)
[2022-08-30] MEDS ORDERED: POTASSIUM CHLORIDE 20MEQ TABLET SR PO NR (14:00)
== END 2022-08-30 17:23 | disposition home or self-care (01) ==
LOC: ER 09:41
DX: R42 Dizziness and giddiness (principal); R53.1 Weakness; E87.6 Hypokalemia; E11.9 Type 2 diabetes mellitus without complications; I10 Essential (primary) hypertension; F12.10 Cannabis abuse, uncomplicated; Z90.710 Acquired absence of both cervix and uterus
CPT/HCPCS: 36415; 70450; 80053; 82550; 85025; 93005; 99285; Z7610

== ENCOUNTER 2023-06-20 10:06 | Emergency (ER) | payer MEDICARE, MEDICAID ==
[~2023-06-20] VITALS: Ht 167.6 cm; Wt 50.0 kg
[~2023-06-20 10:06] MED LIST changes: -GABA-533 PO; +GABA-534 PO; +OCUFLX LEFTEYE; -OFLO5DRO3 LEFTEYE
[2023-06-20 10:10] VITALS: O2SAT 98
[2023-06-20] MEDS: OLANZAPINE 10 MG/VIAL IM ONE ×2 (11:28→14:30)
[2023-06-20 12:03] LABS: BASOPHILS % 0.9 % (0.0-2.0); EOSINOPHILS % 0.7 % (0.0-5.0); HEMATOCRIT. 40.8 % (36.0-48.0); HEMOGLOBIN. 13.8 g/dL (12.0-16.0); LYMPHOCYTES % 32.3 % (20.0-50.0); MEAN CORPUSCULAR HEMOGLOBIN 32.6 pg (28.0-32.0); MEAN CORPUSCULAR HGB CONC 33.9 g/dL (31.0-37.0); MEAN CORPUSCULAR VOLUME 96.2 fL (81.0-99.0); MEAN PLATELET VOLUME 7.4 fl (7.4-10.4); MONOCYTES % 4.4 % (2.0-8.0); NEUTROPHILS % 61.7 % (40.0-76.0); PLATELET 302 x1000/uL (130-400); RED BLOOD CELL COUNT 4.24 mill/uL (4.2-5.4); RED CELL DISTRIBUTION WIDTH 16.5 % (11.6-14.6); WHITE BLOOD COUNT 5.3 x1000/uL (4.5-11.0)
[2023-06-20 13:39] LABS: ALANINE AMINOTRANSFERASE < 7 IU/L (10-49); ASPARTATE AMINOTRANSFERASE 13 IU/L (<34); BILIRUBIN TOTAL 0.2 mg/dL (0.1-1.0); CALCIUM 8.9 mg/dL (8.7-10.4); CARBON DIOXIDE 23 mEq/L (21-32); CHLORIDE 111 mEq/L (98-107); CREATININE 0.5 mg/dL (0.6-1.0); ETHANOL BLOOD 248 mg/dL (<10); GLUCOSE 73 mg/dL (70-105); POTASSIUM 3.5 mEq/L (3.5-5.1); PROTEIN TOTAL 6.7 g/dL (6.0-8.3); SODIUM 148 mEq/L (136-145); TROPONIN I HIGH SENSITIVITY 7 ng/L (3.0-34); UREA NITROGEN BLOOD 8 mg/dL (9-23)
[2023-06-20 14:18] LABS: CLARITY URINE CLOUDY (CLEAR); COLOR URINE YELLOW (YELLOW); GLUCOSE URINE NEGATIVE (NEGATIVE); KETONES URINE NEGATIVE (NEGATIVE); LEUKOCYTE ESTERASE URINE NEGATIVE (NEGATIVE); NITRITE URINE POSITIVE (NEGATIVE); OCCULT BLOOD URINE NEGATIVE (NEGATIVE); PH URINE 6.5 (4.5-8.0); PROTEIN URINE NEGATIVE (NEGATIVE); SPECIFIC GRAVITY URINE 1.005 (1.005-1.030); UROBILINOGEN URINE 0.2 E.U./dL (0.2-1.0)
[2023-06-20] MEDS: LORAZEPAM 2MG/ML INJ IM STA (14:20)
[2023-06-20 14:46] LABS: *AMPHETAMINES SCREEN URINE NEGATIVE (NEGATIVE); *BARBITURATES SCREEN URINE NEGATIVE (NEGATIVE); *BENZODIAZEPINES SCREEN URINE NEGATIVE (NEGATIVE); *COCAINE SCREEN URINE NEGATIVE (NEGATIVE); CANNABINOID URINE SCREEN PRESUMPTIVE POSITIVE (NEGATIVE); ECSTASY MDMA SCREEN URINE NEGATIVE (NEGATIVE); METHADONE URINE SCREEN Neg (NEGATIVE); OPIATES URINE SCREEN NEGATIVE (NEGATIVE); PHENCYCLIDINE URINE SCREEN NEGATIVE (NEGATIVE)
[2023-06-20 14:56] LABS: SQUAMOUS EPITHELIAL CELL URINE 1+ /lpf (RARE/1+)
[2023-06-20 14:57] LABS: BACTERIA URINE 4+; RBC URINE 0-2 /hpf (0-2); WBC URINE 0-2 /hpf (0-2); YEAST URINE NONE SEEN
[2023-06-20] MEDS: SODIUM CHLORIDE 0.9% 1,000 ML IV ONE (18:04)
[2023-06-20] MEDS: ZIPRASIDONE MESYLATE 20MG/VIAL IM ONE (18:04)
[2023-06-20] MEDS: LORAZEPAM 2MG/ML INJ IM ONE (18:04)
[2023-06-20 20:33] LABS: ACETAMINOPHEN < 2 ug/mL (10-30); ALANINE AMINOTRANSFERASE < 7 IU/L (10-49); ALBUMIN 3.9 g/dL (3.2-4.8); ASPARTATE AMINOTRANSFERASE 22 IU/L (<34); BILIRUBIN TOTAL 0.3 mg/dL (0.1-1.0); CARBON DIOXIDE 24 mEq/L (21-32); CHLORIDE 111 mEq/L (98-107); CREATININE 0.5 mg/dL (0.6-1.0); ETHANOL BLOOD 78 mg/dL (<10); PROTEIN TOTAL 6.6 g/dL (6.0-8.3); SODIUM 149 mEq/L (136-145); TROPONIN I HIGH SENSITIVITY 11 ng/L (3.0-34); UREA NITROGEN BLOOD 11 mg/dL (9-23)
[2023-06-20 20:36] LABS: GLUCOSE 44 mg/dL (70-105)
[2023-06-20] MEDS: DEXTROSE 50% WATER 50ML SYRINGE IV ONE ×2 (21:29→23:27)
[2023-06-20] MEDS: POTASSIUM CHLORIDE 20MEQ TABLET SR PO ONE (21:30)
[2023-06-21 10:51] VITALS: BP 140/61; PULSE 82; RESP 18; TEMP 98.9
== END 2023-06-21 11:24 | disposition home or self-care (01) ==
LOC: ER 10:06
DX: R45.851 Suicidal ideations (principal); E11.9 Type 2 diabetes mellitus without complications; R41.82 Altered mental status, unspecified; I10 Essential (primary) hypertension; Z90.710 Acquired absence of both cervix and uterus; F12.10 Cannabis abuse, uncomplicated; Z79.899 Other long term (current) drug therapy; Z20.822 Contact with and (suspected) exposure to COVID-19
CPT/HCPCS: 80053; 80305; 81003; 80307 ×2; 80329; 80320; 82962 ×2; 85025; 84484; 36415 ×2; 71045; 70450; 93005; 96372; 96374; 96376; 99291; 87426; J3490; J2060; J3486; J7030; G0480